=== PATIENT | male | born 1955 | race African-American/Black ===

== ENCOUNTER 2023-01-02 08:31 | Emergency (ER) | payer OTHER ==
[2023-01-02 09:39] LABS: Bilirubin Negative (Negative); Blood, Urine 1+ (Negative); Clarity Turbid (Clear); Glucose, Urine (Dipstick) Normal (Negative); Ketone, Urine Negative (Negative); Leukocyte 500 Leu/uL (Negative); Nitrite 2+ (Negative); Protein, Urine (Dipstick) 50 mg/dL (Neg-Trace); Specific Gravity, Urine 1.009 (1.002-1.036); Squamous Epithelial 0-3 HPF (0-3); Urobilinogen Normal mg/dL (Less than 2); WBC/HPF Greater than 50 HPF (0-3)
[2023-01-02 09:46] LABS: Bacteria/HPF 1+ HPF (None Seen)
== END 2023-01-02 09:54 | disposition home or self-care (01) ==
LOC: ERS 08:31
DX: R33.9 Retention of urine, unspecified (principal); T83.9XXA Unspecified complication of genitourinary prosthetic device, implant and graft, initial encounter; Y84.6 Urinary catheterization as the cause of abnormal reaction of the patient, or of later complication, without mention of misadventure at the time of the procedure
CPT/HCPCS: 81003; 81015; 87086; 99283